=== PATIENT | male | born 1945 | race Two or more races ===

== ENCOUNTER 2017-04-26 14:51 | Emergency (ER) | payer OTHER ==
[2017-04-26] MEDS ORDERED: LIDOCAINE 1% INJ (10 MG/ML) 10 ML MDV INJ ONE (16:20)
[2017-04-26] MEDS ORDERED: MAG HYDROX/AL HYDROX/SIMETH SUSP 30 ML UDCUP PO ONE (16:20)
--- NOTE | 2017-04-26 16:22 | ER Document Report ---
ED Medical Screen (RME) - General Chief Complaint: Flu Symptoms Stated Complaint: ABDOMINAL PAIN,CONGESTION,COUGH Time Seen by Provider: 04/26/17 16:14 Notes: 71-year-old male with several day history of sore throat, congested cough, epigastric pain. There is some nausea without vomiting. He has decreased appetite. States he had similar symptoms in his abdomen when he had "bacteria in the stomach" several years ago. He has rhonchi and congested cough. He has erythema to the posterior pharynx. He has epigastric and right upper quadrant abdominal tenderness. I have greeted and performed a rapid initial assessment of this patient. A comprehensive ED assessment and evaluation of the patient, analysis of test results and completion of the medical decision making process will be conducted by additional ED providers. TRAVEL OUTSIDE OF THE [place] IN LAST 30 DAYS: No - Related Data Allergies/Adverse Reactions: No Known Allergies Allergy (Unverified 04/26/17 14:53) Home Medications: Current Home Medications Glipizide 10 mg PO DAILY 04/26/17 [History] Lisinopril 10 mg PO DAILY 04/26/17 [History] Tamsulosin HCl 0.4 mg PO DAILY 04/26/17 [History] Past Medical History - Social History Chew tobacco use (# tins/day): No Frequency of alcohol use: None Drug Abuse: None Renal/ Medical History: Denies: Hx Peritoneal Dialysis Physical Exam - Vital signs Vitals: Temp Pulse Resp BP Pulse Ox 99.8 F 89 15 136/64 H 98 04/26/17 15:22 04/26/17 15:22 04/26/17 15:22 04/26/17 15:22 04/26/17 15:22 Course - Vital Signs Vital signs: Temp Pulse Resp BP Pulse Ox 99.8 F 89 15 136/64 H 98 04/26/17 15:22 04/26/17 15:22 04/26/17 15:22 04/26/17 15:22 04/26/17 15:22
[2017-04-26] MEDS ORDERED: LIDOCAINE 2% VISCOUS SOLN 20 ML UDCUP PO ONE (16:34)
[2017-04-26] MEDS ORDERED: LIDOCAINE 1% INJ-PF (10 MG/ML) 30 ML SDV INJ ONE (16:45)
[2017-04-26 16:48] LABS: ABSOLUTE BASOPHILS # (AUTO) 0.1 10^3/uL (0.0-0.2); ABSOLUTE EOSINOPHILS # (AUTO) 0.2 10^3/uL (0.0-0.6); ABSOLUTE LYMPHOCYTES (AUTO) 1.5 10^3/uL (0.5-4.7); ABSOLUTE NEUT (AUTO) 10.3 10^3/uL (1.7-8.2); BASOPHILS % (AUTO) 0.4 % (0-2); EOSINOPHILS % (AUTO) 1.3 % (0-6); HEMATOCRIT 43.9 % (37.9-51.0); LYMPHOCYTES % (AUTO) 11.8 % (13-45); MEAN CORPUSCULAR HEMOGLOBIN 32.6 pg (27.0-33.4); MEAN CORPUSCULAR HGB CONC 34.2 g/dL (32.0-36.0); MEAN CORPUSCULAR VOLUME 96 fl (80-97); MONOCYTES % (AUTO) 7.9 % (3-13); PLATELET COUNT 286 10^3/uL (150-450); RED BLOOD COUNT 4.59 10^6/uL (4.35-5.55); RED CELL DISTRIBUTION WIDTH 12.9 % (11.5-14.0); SEGMENTED NEUTROPHILS % (AUTO) 78.6 % (42-78); TOTAL CELLS COUNTED % (AUTO) 100 %; WHITE BLOOD COUNT 13.1 10^3/uL (4.0-10.5)
[2017-04-26 17:05] LABS: ALANINE AMINOTRANSFERASE 25 U/L (21-72); ALBUMIN 4.3 g/dL (3.5-5.0); ALKALINE PHOSPHATASE 102 U/L (38-126); ANION GAP 13 (5-19); ASPARTATE AMINO TRANSFERASE 22 U/L (17-59); BILIRUBIN,DIRECT 0.4 mg/dL (0.0-0.4); BILIRUBIN,TOTAL 1.1 mg/dL (0.2-1.3); BLOOD UREA NITROGEN 12 mg/dL (7-20); CALCIUM 9.9 mg/dL (8.4-10.2); CARBON DIOXIDE 27 mmol/L (22-30); CHLORIDE 103 mmol/L (98-107); GLUCOSE 105 mg/dL (75-110); LIPASE 749.5 U/L (23-300); POTASSIUM 4.7 mmol/L (3.6-5.0); SODIUM 142.5 mmol/L (137-145); TOTAL PROTEIN 7.7 g/dL (6.3-8.2)
--- NOTE | 2017-04-26 17:38 | RADIOLOGY REPORT (SQ) ---
EXAM DESCRIPTION: CHEST PA/LAT COMPLETED DATE/TIME: 04/26/2017 5:04 pm REASON FOR STUDY: Congested cough and rhonchi COMPARISON: None. EXAM PARAMETERS: NUMBER OF VIEWS: two views TECHNIQUE: Digital Frontal and Lateral radiographic views of the chest acquired. RADIATION DOSE: NA LIMITATIONS: none FINDINGS: LUNGS AND PLEURA: No opacities, masses or pneumothorax. No pleural effusion. MEDIASTINUM AND HILAR STRUCTURES: No masses or contour abnormalities. HEART AND VASCULAR STRUCTURES: Heart normal size. No evidence for failure. BONES: No acute findings. HARDWARE: None in the chest. OTHER: No other significant finding. IMPRESSION: NO SIGNIFICANT RADIOGRAPHIC FINDING IN THE CHEST. TECHNICAL DOCUMENTATION: JOB ID: [id number] [employer]- All Rights Reserved
[2017-04-26] MEDS ORDERED: FAMOTIDINE INJ/PF 20 MG/2 ML SDV IV ONE (18:48)
[2017-04-26] MEDS ORDERED: NORMAL SALINE 1000 ML 1,000 ML IV ONE (18:48)
--- NOTE | 2017-04-26 19:32 | RADIOLOGY REPORT (SQ) ---
EXAM DESCRIPTION: CT ABD/PELVIS WITH IV ONLY COMPLETED DATE/TIME: 04/26/2017 7:18 pm REASON FOR STUDY: epigastric pain lipase 700 COMPARISON: None. TECHNIQUE: CT scan of the abdomen and pelvis performed using helical scanning technique with dynamic intravenous contrast injection. No oral contrast. Images reviewed with lung, soft tissue, and bone windows. Reconstructed coronal and sagittal MPR images reviewed. Delayed images for evaluation of the urinary system also acquired. All images stored on PACS. All CT scanners at this facility use dose modulation, iterative reconstruction, and/or weight based d osing when appropriate to reduce radiation dose to as low as reasonably achievable (ALARA). [facility]: Dose Right [facility]: CareDose [facility]: Dose Right [facility]: Teradose 4D [facility]: Blue Security CONTRAST TYPE AND DOSE: contrast/concentration: Isovue 370.00 mg/ml; Total Contrast Delivered: 86.0 ml; Total Saline Delivered: 57.0 ml RENAL FUNCTION: Creatinine 0.97 RADIATION DOSE: CT Rad equipment meets quality standard of care and radiation dose reduction techniq ues were employed. CTDIvol: NaN - NaN mGy. DLP: 0 mGy-cm.. LIMITATIONS: None. FINDINGS: LOWER CHEST: No significant findings. No nodules or infiltrates. LIVER: Normal size. No masses. No dilated ducts. SPLEEN: Normal size. No focal lesions. PANCREAS: No masses. No significant calcifications. No adjacent inflammation or peripancreatic fluid collections. Pancreatic duct not dilated. GALLBLADDER: No identified stones by CT criteria. No inflammatory changes to suggest cholecystitis. ADRENAL GLANDS: A 2.4 cm in diameter fat containing mass is identified in the right adrenal gland con sistent with a benign etiology such as a myelolipoma RIGHT KIDNEY AND URETER: No solid masses. No significant calcifications. No hydronephrosis or hyd roureter. LEFT KIDNEY AND URETER: No solid masses. No significant calcifications. No hydronephrosis or hydr oureter. AORTA AND VESSELS: No aneurysm. No dissection. Renal arteries, SMA, celiac without stenosis. RETROPERITONEUM: No retroperitoneal adenopathy, hemorrhage or masses. BOWEL AND PERITONEAL CAVITY: No masses or inflammatory changes. No free fluid or peritoneal masses. APPENDIX: Normal. PELVIS: No mass. No free fluid. There is enlargement of the prostate gland with a prostatic impress ion on the bladder base ABDOMINAL WALL: No masses. No hernias. BONES: No significant or acute findings. OTHER: No other significant finding. IMPRESSION: NO SIGNIFICANT OR ACUTE FINDING IN THE ABDOMEN OR PELVIS ON CT SCAN WITH IV CONTRAST. TECHNICAL DOCUMENTATION: JOB ID: [id number] Quality ID # [id number]: Final reports with documentation of one or more dose reduction techniques (e.g., Au tomated exposure control, adjustment of the mA and/or kV according to patient size, use of iterative reconstruction technique) 2010 [employer]- All Rights Reserved
--- NOTE | 2017-04-26 20:08 | ER Document Report ---
ED General - General Chief Complaint: Flu Symptoms Stated Complaint: ABDOMINAL PAIN,CONGESTION,COUGH Time Seen by Provider: 04/26/17 16:14 TRAVEL OUTSIDE OF THE [place] IN LAST 30 DAYS: No - HPI Patient complains to provider of: Epigastric abdominal pain Notes: Patient is speaking only translation is provided by family member at bedside. States mostly the patient is concerned about epigastric abdominal pain. States other symptoms such as sore throat and cough. States patient has a history of bacterial infection stomach many years ago states today similar feeling over the last week decreased p.o. intake because of pain when eating. Denies any fevers chills nausea vomiting denies any diarrhea. Patient resting comfortably upon my evaluation denies any excessive alcohol use or NSAID use. - Related Data Allergies/Adverse Reactions: No Known Allergies Allergy (Unverified 04/26/17 14:53) Home Medications: Current Home Medications Glipizide 10 mg PO DAILY 04/26/17 [History] Lisinopril 10 mg PO DAILY 04/26/17 [History] Tamsulosin HCl 0.4 mg PO DAILY 04/26/17 [History] Past Medical History - Social History Smoking Status: Never Smoker Chew tobacco use (# tins/day): No Frequency of alcohol use: None Drug Abuse: None Family History: Reviewed & Not Pertinent Patient has suicidal ideation: No Patient has homicidal ideation: No - Past Medical History Cardiac Medical History: Reports: Hx Hypertension Endocrine Medical History: Reports: Hx Diabetes Mellitus Type 2 Renal/ Medical History: Denies: Hx Peritoneal Dialysis Review of Systems - Review of Systems Constitutional: No symptoms reported EENT: No symptoms reported Cardiovascular: No symptoms reported Respiratory: No symptoms reported Gastrointestinal: Abdominal pain Genitourinary: No symptoms reported Male Genitourinary: No symptoms reported Musculoskeletal: No symptoms reported Skin: No symptoms reported Hematologic/Lymphatic: No symptoms reported Neurological/Psychological: No symptoms reported -: Yes All other systems reviewed and negative Physical Exam - Vital signs Vitals: Temp Pulse Resp BP Pulse Ox 99.8 F 89 15 136/64 H 98 04/26/17 15:22 04/26/17 15:22 04/26/17 15:22 04/26/17 15:22 04/26/17 15:22 Interpretation: Normal - General General appearance: Appears well, Alert - HEENT Head: Normocephalic, Atraumatic Eyes: Normal Pupils: PERRL - Respiratory Respiratory status: No respiratory distress Chest status: Nontender Breath sounds: Normal Chest palpation: Normal - Cardiovascular Rhythm: Regular Heart sounds: Normal auscultation Murmur: No - Abdominal Inspection: Normal Distension: No distension Bowel sounds: Normal Tenderness: Nontender Organomegaly: No organomegaly - Back Back: Normal, Nontender - Extremities General upper extremity: Normal inspection, Nontender, Normal color, Normal ROM , Normal temperature General lower extremity: Normal inspection, Nontender, Normal color, Normal ROM , Normal temperature, Normal weight bearing. No: Manav's sign - Neurological Neuro grossly intact: Yes Cognition: Normal Orientation: AAOx4 Tabatha Coma Scale Eye Opening: Spontaneous Tabatha Coma Scale Verbal: Oriented Tabatha Coma Scale Motor: Obeys Commands Garrison Coma Scale Total: 15 Speech: Normal Motor strength normal: LUE, RUE, LLE, RLE Sensory: Normal - Psychological Associated symptoms: Normal affect, Normal mood - Skin Skin Temperature: Warm Skin Moisture: Dry Skin Color: Normal Course - Re-evaluation Re-evalutation: 04/27/17 01:16 Laboratory studies show slight elevation the patient's lipase however CT scan was performed showing no pancreatic inflammation. More likely this is related to underlying gastritis. Explained to the family member into the patient that we will treat him with Carafate and Reglan and a proton pump inhibitor. Explained that patient would need to follow-up with a GI specialist for further evaluation. No other critical etiology seen. Family members are agreeable to this plan will be discharged home. - Vital Signs Vital signs: Temp Pulse Resp BP Pulse Ox 98.4 F 85 18 142/72 H 99 04/26/17 20:51 04/26/17 20:51 04/26/17 20:51 04/26/17 20:51 04/26/17 20:51 - Laboratory Result Diagrams: 04/26/17 16:34 04/26/17 16:34 Laboratory results interpreted by me: 04/26/17 04/26/17 04/26/17 16:34 16:34 20:33 WBC 13.1 H Seg Neutrophils % 78.6 H Lymphocytes % 11.8 L Absolute Neutrophils 10.3 H Lipase 749.5 H Urine Ketones 20 H Urine Blood SMALL H Discharge - Discharge Clinical Impression: Abdominal pain Qualifiers: Abdominal location: epigastric Qualified Code(s): R10.13 - Epigastric pain Condition: Good Disposition: HOME, SELF-CARE Instructions: Abdominal Pain ([facility]), Family Physicians / Practices, Gastritis ( [facility]), Gastroenterology, Viral Syndrome ([facility]) Additional Instructions: Your evaluation tonight for your abdominal pain is not reveal any significant pathology. You have slight elevation in her lipase however is no signs of inflammation of the pancreas on the CAT scan. The rest of the CAT scan is otherwise normal. The rest of your laboratory studies are normal. Highly recommend following up with a primary care physician. I am concerned that he may have underlying inflammation of your stomach however I do not have the means to prove that here in the ER. This will require follow-up with a overlay plastician or GI specialist. Please take the medication as prescribed the Carafate is there to coat the stomach take this prior to eating to help out with the pain. Reglan is there for any nausea also this will help empty the stomach. The omeprazole is there to help the healing process if there is underlying inflammation. Prescriptions: Metoclopramide HCl [Reglan] 5 mg PO Q6 #30 tablet Omeprazole 20 mg PO DAILY #30 capsule. Sucralfate [Carafate 1 gm Tablet] 1 gm PO ACHS #120 tablet
[2017-04-26] MEDS ORDERED: LANSOPRAZOLE 30 MG TAB.RAP.DR PO ONE (20:11)
[2017-04-26 21:04] VITALS: BP 142/72
[2017-04-26 21:05] LABS: APPEARANCE,URINE CLEAR; BILIRUBIN,URINE NEGATIVE (NEGATIVE); COLOR,URINE YELLOW; GLUCOSE, URINE NEGATIVE (NEGATIVE); KETONES,URINE 20 mg/dL (NEGATIVE); LEUKOCYTE ESTERASE,URINE NEGATIVE (NEGATIVE); NITRITE,URINE NEGATIVE (NEGATIVE); PROTEIN,URINE NEGATIVE (NEGATIVE); URINE SPECIFIC GRAVITY 1.048; UROBILINOGEN,URINE NEGATIVE mg/dL (<2.0)
== END 2017-04-26 20:51 | disposition home or self-care (01) ==
LOC: ER 14:51
DX: R10.13 Epigastric pain (principal); R09.81 Nasal congestion; R05 Cough; Z79.899 Other long term (current) drug therapy
CPT/HCPCS: 99284; 96361; 96374; 36415; 87070; 87880; 83690; 85025; 80053; 81001; 71020; 74177; J3490; J7030; S0028